=== PATIENT | female | born 1950 | race Caucasian/White ===

== ENCOUNTER 2019-07-31 09:19 | Day surgery (SDC) | payer MEDICARE, MEDICAID ==
[~2019-07-31] VITALS: Ht 154.9 cm; Wt 65.8 kg
[~2019-07-31 09:19] MED LIST: BUPR100T13 PO; HYDR25TA PO; LISI40TA4 PO; LOVA20TA2 PO
[2019-07-31] MEDS ORDERED: LACTATED RINGERS 1,000 ML IV SCH (10:00)
[2019-07-31] MEDS ORDERED: FENTANYL CITRATE/PF 50MCG/ML 2ML VIAL ONE (14:21)
[2019-07-31] MEDS ORDERED: MIDAZOLAM HCL 2 MG/2 ML VIAL ONE (14:21)
[2019-07-31] MEDS ORDERED: HYDRALAZINE 20MG/ML VIAL ONE (14:22)
[2019-07-31] MEDS ORDERED: DIPHENHYDRAMINE 50MG/ML VIAL ONE (14:22)
[2019-07-31] MEDS ORDERED: HYDROMORPHONE HCL/PF 2MG/ML CPJ IV PRN (15:00)
[2019-07-31] MEDS ORDERED: NEO/POLYMYX B SULF/DEXAMETH OPHTH OINT 3.5GM ONE (16:25)
[2019-07-31] MEDS ORDERED: BUPIVACAINE HCL/PF 0.75% (7.5MG/ML) 10ML ONE (16:25)
[2019-07-31] MEDS ORDERED: CIPROFLOXACIN 0.3% OPHTH SOLN 2.5ML ONE (16:25)
[2019-07-31] MEDS ORDERED: BALANCED SALT IRRIG SOLN 15ML ONE (16:25)
[2019-07-31] MEDS ORDERED: PREDNISOLONE ACETATE 1% OPHTH DROPS 5ML ONE (16:25)
[2019-07-31] MEDS ORDERED: LIDOCAINE HCL 2%/EPINEPHRINE 1:100,000 20 ML VIAL INFIL ONE (16:25)
[2019-07-31] MEDS ORDERED: METOCLOPRAMIDE HCL 10MG/2ML VIAL IV NR (17:00)
[2019-07-31] MEDS ORDERED: ONDANSETRON HCL 4MG/2ML INJ IM NR (17:00)
== END 2019-07-31 17:30 | disposition home or self-care (01) ==
LOC: OR 09:19
PROVIDERS: ATTEND Ophthalmology
DX: D23.121 Other benign neoplasm of skin of left upper eyelid, including canthus (principal); I10 Essential (primary) hypertension; E66.9 Obesity, unspecified; E78.00 Pure hypercholesterolemia, unspecified; Z79.899 Other long term (current) drug therapy; Z90.710 Acquired absence of both cervix and uterus; Z98.890 Other specified postprocedural states; Z68.28 Body mass index [BMI] 28.0-28.9, adult
CPT/HCPCS: 67840; J0360; J1200; J2250; J2405; J2765; J3010; J3490